=== PATIENT | male | born 1960 | race Caucasian/White ===

== ENCOUNTER 2016-08-22 18:30 | Emergency (ER) | payer MEDICAID, OTHER ==
[2016-08-22 18:44] VITALS: BP 157/108
[2016-08-22] MEDS ORDERED: AZITHROMYCIN 250 MG TABLET PO ONE (19:05)
[2016-08-22] MEDS ORDERED: METHYLPREDNISOLONE SOD SUCC/PF 125 MG/2 ML VIAL IM ONE (19:06)
[2016-08-22] MEDS ORDERED: METHYLPREDNISOLONE SOD SUCC/PF 125 MG/2 ML VIAL ONE (19:09)
[2016-08-22] MEDS ORDERED: AZITHROMYCIN 250 MG TABLET ONE (19:09)
--- NOTE | 2016-08-22 19:10 | ERNOTE ---
Dyspnea - Date Date of Service: 08/22/16 - General Presenting Symptoms: shortness of breath, other - Cough Time Seen by Provider: 08/22/16 18:50 Source: patient, RN notes reviewed Exam Limitations: no limitations - Immun/Allergies/Home Medications Immunizations: IMMUNIZATION HX Immunizations Up to Date Yes History of Influenza Vaccine No Hx Pneumococcal Vaccination No Allergies/Adverse Reactions: Allergies No Known Drug Allergies Allergy (Verified 09/17/16 15:11) Home Medications: HOME MEDICATIONS Lurasidone HCl [Latuda] 60 mg PO DAILY 08/22/16 [Last Taken Unknown] Albuterol Sulfate [Ventolin Hfa] 2 puff IH Q4H PRN #1 inhaler 09/17/16 [Last Taken Unknown] Budesonide [Pulmicort Flexhaler] 2 puff IH BID #1 inhaler 09/17/16 [Last Taken Unknown] Permethrin [Elimite 5% Cream] 1 appl TP ONCE #1 tube 09/17/16 [Last Taken Unknown] - History of Present Illness Narrative: 56 year old male ambulatory to the ED for a cough and shortness of breath that has been gradually worsening over the past 2 months. The patient is a heavy alcohol user and a 2 pack a day smoker. He does not wish to have any diagnostic testing performed, but only to get medications for the condition. 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 Denies: fever/chills, sweating, chest pain/discomfort, ankle/leg swelling, dizziness, lightheadedness Prior Treatment: Denies: recently seen Review of Systems - Review of Systems Constitutional: Present: fatigue, malaise. Absent: fever, chills EYE: Present: no symptoms reported ENT: Present: sore throat. Absent: nose congestion, nasal drainage Respiratory: Present: shortness of breath, cough, wheezing. Absent: orthopnea Cardiology: Absent: chest pain, edema Gastrointestinal/Abdominal: Absent: nausea, vomiting, abdominal pain Genitourinary: Present: no symptoms reported Musculoskeletal: Present: no symptoms reported Skin: Absent: rash, lesions Neurological: Absent: headache, dizziness/light-headedness Endocrine: Present: no symptoms reported Hematologic/Lymphatic: Present: no symptoms reported Psych: Present: no symptoms reported - Patient's Past Medical History Patient History - Medical: Alcohol Abuse, Bipolar Patient History - Cardiac/Respiratory: COPD Patient History - Cancer: No Hx of Cancer Patient History - Surgical Procedures: Other Patient History - Other: None - Social History Living Situations: home Psych History: Hx of Bipolar Disorder Smoking Status: Current every day smoker Do you dip or chew tobacco: Yes Alcohol Use: heavy Drug Use: marijuana - Immunizations Immunizations Up to Date: Yes Hx Pneumococcal Vaccination: No History of Influenza Vaccine: No Physical Exam - Physical Exam General Appearance: Present: wd/wn, alert, no apparent distress Ears, Nose, Throat: Present: nasal congestion, pharyngeal erythema. Absent: sinus pain/drainage, pharyngeal swelling Neck: Present: normal inspection, nontender, supple, full range of motion Respiratory: Present: no respiratory distress, accessory muscle use - mild, decreased breath sounds, expiration (prolonged), wheezing Cardiovascular/Chest: Present: regular rate, rhythm, no murmur, normal peripheral pulses Extremity Exam: Present: normal inspection, no edema Neurological Exam: Present: alert, oriented, normal mood/affect, no motor/ sensory deficits Skin Exam: Present: normal color, warm/dry ED Progress - Vital Signs Patient's Vital Signs:: I have reviewed the patient's vital signs. Vital Signs: Vital Signs 08/22/16 18:39 Temperature 37.2 C Pulse Rate 82 Respiratory 24 H Rate Blood Pressure 157/108 O2 Sat by Pulse 95 Oximetry - Progress/Reassessment Chief Complaint: Dyspnea Progress:: Unchanged Departure Clinical Impression: COPD with acute exacerbation - Departure Disposition: Home Follow Up Needed Condition: Fair Instructions: Chronic Obstructive Pulmonary Disease, [id number] Additional Instructions: Return if symptoms worsen Establish with a primary care provider for management of your chronic breathing issues Stop smoking
--- OUTSIDE RECORDS SUMMARY | 2016-08-22 19:17 | XMS REPORT | Continuity of Care Document ---
:1960 Author Organization [facility] ([facility]) Address [address] [place] [address] Phone [phone] Care Team Providers Name Role Phone Provider, No-Primary Care Primary Care Provider Unavailable Source Comments This disclosure is being made pursuant to the Care Everywhere program, applicable federal and state laws, and may not contain all informaitonavailable regarding this patient.[facility] ([facility]) Active Allergies and Adverse Reactions Allergen Noted Date Severity Reactions Comments Bee Stings Anaphylactic Shock Current Medications Not on file Active Problems Problem Noted Date Closed fracture of shaft of fibula with tibia 02/24/2007 Pain in limb 02/06/2007 Social History Tobacco Use Types Packs/Day Years Used Date Never Assessed Last Filed Vital Signs Vital Sign Reading Time Taken Blood Pressure 130/76 02/15/2007 11:48 AM CDT Pulse 65 02/15/2007 11:48 AM CDT Temperature 34.8 C (94.64 F) 02/15/2007 11:48 AM CDT Respiratory Rate 20 02/06/2007 11:44 AM CDT Height 1.775 m (5' 9.88") 02/15/2007 11:48 AM CDT Weight 74.898 kg (165 lb 1.9 oz) 02/15/2007 11:48 AM CDT Body Mass Index 23.77 02/15/2007 11:48 AM CDT Oxygen Saturation - - Plan of Care Health Maintenance Due Date Last Done Comments HCV Screening 1960 Hepatitis B Vaccine (1 of 3 - Primary Series) 1960 Tdap Vaccine 1969 Lipid Disorder Screening 1976 MMR Vaccine 1976 Td Vaccine 1976 Colonoscopy 08/31/2008 Prostate Cancer Screening 2008 Influenza Vaccine: Seasonal (#1) 01/19/2016 Results from Last 3 Months Not on file
== END 2016-08-22 19:34 | disposition home or self-care (01) ==
LOC: ER 18:30
DX: J44.1 Chronic obstructive pulmonary disease with (acute) exacerbation (principal); Z72.0 Tobacco use; F31.70 Bipolar disorder, currently in remission, most recent episode unspecified

== ENCOUNTER 2016-09-17 14:58 | Emergency (ER) | payer OTHER ==
[2016-09-17] MEDS ORDERED: ALBUTEROL SULFATE/IPRATROPIUM 3 ML NEBU IH ONE ×2 (15:27→15:30)
--- OUTSIDE RECORDS SUMMARY | 2016-09-17 15:33 | XMS REPORT | Continuity of Care Document ---
:1960 Author Organization [facility] ([facility]) Address [address] [place] [address] Phone [phone] Care Team Providers Name Role Phone Provider, No-Primary Care Primary Care Provider Unavailable Source Comments This disclosure is being made pursuant to the Care Everywhere program, applicable federal and state laws, and may not contain all informaitonavailable regarding this patient.[facility] ([facility]) Active Allergies and Adverse Reactions Allergen [...]
--- NOTE | 2016-09-17 15:46 | ERNOTE ---
Integumentary HPI - Narrative Date of Service: 09/17/16 - General Presenting Symptoms: rash, other - SOB Time Seen by Provider: 09/17/16 15:15 Source: patient Exam Limitations: no limitations - Immun/Allergies/Home Medications Immunizations: IMMUNIZATION HX Immunizations Up to Date No History of Influenza Vaccine No Hx Pneumococcal Vaccination No Allergies/Adverse Reactions: Allergies Allergy/AdvReac Type Severity Reaction Status Date / Time No Known Drug Allergies Allergy Verified 09/17/16 15:11 Home Medications: HOME MEDICATIONS Lurasidone HCl [Latuda] 60 mg PO DAILY 08/22/16 [Last Taken Unknown] Albuterol Sulfate [Ventolin Hfa] 2 puff IH Q4H PRN #1 inhaler 09/17/16 [Last Taken Unknown] Budesonide [Pulmicort Flexhaler] 2 puff IH BID #1 inhaler 09/17/16 [Last Taken Unknown] Permethrin [Elimite 5% Cream] 1 appl TP ONCE #1 tube 09/17/16 [Last Taken Unknown] - History of Present Illness Narrative: Pt. comes in with rash that he has had for months, pt is unsure of exact timing of illness. Pt. also was recently diagnosed with COPD and he was treated for acute on chronic bronchitis with steroids and antibiotics three weeks ago with improvement of symptoms, but not resolution. Pt. then states that he steadily worsened again since. Pt. denies any fever or chest pain, but does have SOB with activity. Review of Systems - Review of Systems Constitutional: Present: fatigue, malaise. Absent: recent illness, fever, chills EYE: Present: no symptoms reported ENT: Present: nose congestion, nasal drainage. Absent: sore throat Respiratory: Present: shortness of breath, cough, wheezing. Absent: stridor Cardiology: Present: no symptoms reported. Absent: chest pain, palpitations, edema Gastrointestinal/Abdominal: Present: no symptoms reported. Absent: nausea, vomiting, diarrhea Genitourinary: Present: no symptoms reported Musculoskeletal: Present: no symptoms reported. Absent: back pain, joint pain Skin: Present: rash - B arms and back at waist band Neurological: Present: no symptoms reported. Absent: headache, dizziness/light- headedness, numbness, tingling All Other Systems: All systems neg except as marked - Patient's Past Medical History Patient History - Medical: Bipolar Patient History - Cardiac/Respiratory: COPD Patient History - Cancer: No Hx of Cancer Patient History - Surgical Procedures: Other Patient History - Other: None - Social History Living Situations: alone Abuse History: No History of abuse Psych History: Hx of Bipolar Disorder Smoking Status: Current every day smoker Alcohol Use: heavy Drug Use: marijuana - Immunizations Immunizations Up to Date: No Hx Pneumococcal Vaccination: No History of Influenza Vaccine: No Physical Exam - Physical Exam General Appearance: Present: wd/wn, alert, no apparent distress Eye Exam: Normal inspection: bilateral, PERRL: bilateral, EOMI: bilateral Ears, Nose, Throat: Present: normal pharynx, other - clear rhinorrhea. Absent: sinus pain/drainage, pharyngeal erythema Neck: Present: normal inspection, nontender. Absent: lymphadenopathy (R), lymphadenopathy (L) Respiratory: Present: no accessory muscle use, chest nontender, rhonchi - throughout, wheezing - throughout Cardiovascular/Chest: Present: regular rate, rhythm, no murmur, normal peripheral pulses Gastrointestinal/Abdominal: Present: normal bowel sounds, nontender, nondistended, soft, no organomegaly Back Exam: Present: normal inspection, normal range of motion, no CVA tenderness , no vertebral tenderness Extremity Exam: Present: non-tender, normal range of motion, no edema Neurological Exam: Present: alert, oriented, normal mood/affect, no motor/ sensory deficits Skin Exam: Present: warm/dry, skin rash - B arms and lower back at waistband scabies like. Absent: intertrigo ED Progress - Date and Time Seen: Date and Time: 09/17/16 18:41 Discussed quitting smoking and cutting down on ETOH use. Pt. also needs PCP so will give him a list to choose from. - Results and Orders Patient's Lab Results:: I have reviewed the patient's lab results. - Vital Signs Patient's Vital Signs:: I have reviewed the patient's vital signs. Vital Signs: Vital Signs 09/17/16 15:07 Temperature 36.7 C Pulse Rate 104 H Respiratory 16 Rate Blood Pressure 162/100 O2 Sat by Pulse 98 Oximetry - X-Ray X-Ray #1 X-Ray: chest Interpretation: Reviewed by me X-ray Comments: chronic hyper inflation no acute process - Progress/Reassessment Chief Complaint: Rash Progress:: Improved Departure Clinical Impression: COPD with acute exacerbation, ETOH abuse, Scabies - Departure Disposition: Home self-care Condition: Good Instructions: Scabies, Adult, Chronic Obstructive Pulmonary Disease Exacerbation, [id number] Additional Instructions: Please use lubriderm lotion after you rinse of elimite. Also use pulmicort as directed daily and albuterol every four hours as needed. Please follow up with primary provider of your choice in 2-3 days. Prescriptions: Albuterol Sulfate [Ventolin Hfa] 2 puff IH Q4H PRN #1 inhaler PRN Reason: Shortness Of Breath Budesonide [Pulmicort Flexhaler] 2 puff IH BID #1 inhaler Permethrin [Elimite 5% Cream] 1 appl TP ONCE #1 tube
[2016-09-17 15:53] LABS: Hematocrit 47.1 % (42.0-52.0); Hemoglobin 17.3 gm/dL (13.5-18.0); Mean Cell Volume 89.5 fl (78-100); Mean Corpuscular Hemoglobin 32.9 pg (27-31); Mean Corpuscular Hgb Conc 36.7 g/dl (32-36); Mean Platelet Volume 8.9 fl (6.0-9.5); Neutrophil # 2.8 K/mm3 (1.3-6.0); Neutrophil % 58.6 % (42-75.0); Platelet Count 188 K/mm3 (150-450); Red Blood Count 5.26 M/mm3 (4.7-6.0); Red Cell Distribution Width 11.9 % (11.5-14.0); White Blood Count 4.8 K/mm3 (4.0-10.5)
[2016-09-17 16:07] LABS: ALT 154 U/L (19-67); AST 250 U/L (0-48); Albumin * 4.3 gm/dl (3.4-5.0); Alkaline Phosphatase * 69 U/L (50-170); BNP * 80 pg/mL (5-175); BUN/Creatinine Ratio 7.2 (9.0-21.6); Bilirubin, Total 1.2 mg/dL (0.0-1.1); Blood Urea Nitrogen 5 mg/dL (6-23); CRP 0.8 mg/dL (0.0-0.9); Ca. Corrected For Albumin 8.2 mg/dL (8.4-10.2); Calcium * 8.8 mg/dL (7.9-10.9); Chloride 87 mmol/L (97-106); Glucose * 71 mg/dL (70-110); Potassium 4.4 mmol/L (3.4-4.6); Sodium 126 mmol/L (132-142); Total Protein 8.2 gm/dL (6.2-8.2)
[2016-09-17 16:13] LABS: Anion Gap 19.8 mmol/L (6.8-13.8); Carbon Dioxide 23.6 mmol/L (24-32.6); Troponin I Less than 0.017 ng/ml (0.00-0.10)
[2016-09-17] MEDS ORDERED: NORMAL SALINE 1,000 ML IV ONE (16:13)
[2016-09-17] MEDS ORDERED: MULTIVIT INFUSN,ADULT 4,VIT K 10 ML, THIAMINE HCL 100 MG in NORMAL SALINE 1,000 ML IV SCH (16:30)
[2016-09-17 21:31] VITALS: BP 148/78
== END 2016-09-17 21:28 | disposition home or self-care (01) ==
LOC: ER 14:58
DX: J44.1 Chronic obstructive pulmonary disease with (acute) exacerbation (principal); B86 Scabies; F10.10 Alcohol abuse, uncomplicated; F17.210 Nicotine dependence, cigarettes, uncomplicated; F31.9 Bipolar disorder, unspecified

== ENCOUNTER 2016-12-04 16:17 | Emergency (ER) | payer OTHER ==
[2016-12-04 16:26] VITALS: BP 132/83
--- NOTE | 2016-12-04 16:51 | ERNOTE ---
Back Pain ER HPI Date of Service: 12/04/16 Presenting Symptoms: injury/pain to back Time Seen by Provider: 12/04/16 16:42 Source: patient Exam Limitations: no limitations Immunizations: IMMUNIZATION HX Immunizations Up to Date Yes History of Influenza Vaccine No Hx Pneumococcal Vaccination No Allergies/Adverse Reactions: Allergies No Known Drug Allergies Allergy (Verified 12/04/16 16:26) Home Medications: HOME MEDICATIONS Lurasidone HCl [Latuda] 60 mg PO DAILY 08/22/16 [Last Taken Unknown] Cyclobenzaprine HCl [Flexeril] 10 mg PO TID PRN #30 tab 12/04/16 [Last Taken Unknown] Narrative: no injury, patient has been sleeping in recliner and back has been in spasm Timing: Reports: constant, getting worse Quality/Severity: Reports: moderate Location of pain: Reports: mid back Activities at Onset: Reports: activity Recent Injury?: Reports: no Possible Precipitating Factor: Reports: none Modifying Factors - (Improves): Reports: nothing Modifying Factors - (Worsens): Reports: movement to right, movement to left Associated Symptoms: Reports: none Review of Systems - Review of Systems Constitutional: Present: no symptoms reported EYE: Present: no symptoms reported ENT: Present: no symptoms reported Respiratory: Present: no symptoms reported Cardiology: Present: no symptoms reported Gastrointestinal/Abdominal: Present: no symptoms reported Genitourinary: Present: no symptoms reported Musculoskeletal: Present: muscle pain, muscle stiffness Skin: Present: no symptoms reported Neurological: Present: no symptoms reported Endocrine: Present: no symptoms reported Hematologic/Lymphatic: Present: no symptoms reported Psych: Present: no symptoms reported - Patient's Past Medical History Patient History - Medical: Bipolar Patient History - Cardiac/Respiratory: No pertinent hx Patient History - Cancer: No Hx of Cancer Patient History - Surgical Procedures: No surgical history Patient History - Other: None - Family History Family History:: no untoward family reactions to anesthesia, no familial bleeding tendencies, no family history of clotting disorders, no family history of premature - Social History Living Situations: alone Abuse History: No History of abuse Psych History: Hx of Bipolar Disorder Smoking Status: Current every day smoker Have you smoked in the past 12 months: Yes Do you dip or chew tobacco: Yes Initiate information on Smoking Cessation: No Alcohol Use: heavy Drug Use: marijuana - Immunizations Immunizations Up to Date: Yes Hx Pneumococcal Vaccination: No History of Influenza Vaccine: No Physical Exam - Physical Exam General Appearance: Present: alert, moderate distress Eye Exam: Normal inspection: bilateral, PERRL: bilateral, EOMI: bilateral Ears, Nose, Throat: Present: normal ENT inspection Neck: Present: normal inspection, nontender Respiratory: Present: no respiratory distress, normal breath sounds, chest nontender, lungs clear Cardiovascular/Chest: Present: regular rate, rhythm, no murmur, normal peripheral pulses Gastrointestinal/Abdominal: Present: normal bowel sounds, nontender, nondistended, soft, no organomegaly Back Exam: Present: vertebral tenderness, decreased range of motion, muscle spasm Extremity Exam: Present: normal inspection, normal range of motion, no edema Neurological Exam: Present: alert, oriented, normal mood/affect, no motor/ sensory deficits DTR: N=norm/NB=norm/brisk/A=abs/DD=dull/dimin/HC=hyperactive: Bicep (R): Normal , Bicep (L): Normal, Tricep (R): Normal, Tricep (L): Normal, Knee (R): Normal, Knee (L): Normal, Ankle (R): Normal, Ankle (L): Normal Skin Exam: Present: normal color, warm/dry ED Progress - Vital Signs Patient's Vital Signs:: I have reviewed the patient's vital signs. Vital Signs: Vital Signs 12/04/16 16:20 Temperature 36.8 C Pulse Rate 116 H Respiratory 18 Rate Blood Pressure 132/83 O2 Sat by Pulse 96 Oximetry - Progress/Reassessment Chief Complaint: Back Pain Progress:: Unchanged - Transfer of Care Expected Disposition: Discharge Departure Clinical Impression: Muscle spasm - Departure Disposition: Home self-care Condition: Stable Instructions: Mid-Back Strain With Rehab[facility] Prescriptions: Cyclobenzaprine HCl [Flexeril] 10 mg PO TID PRN #30 tab PRN Reason: MUSCLE SPASMS
--- OUTSIDE RECORDS SUMMARY | 2016-12-04 16:59 | XMS REPORT | Continuity of Care Document ---
:1960 Author Organization [facility] ([facility]) Address [address] [place] [address] Phone [phone] Care Team Providers Name Role Phone Provider, No-Primary Care Primary Care Provider Unavailable Source Comments This disclosure is being made pursuant to the Care Everywhere program, applicable federal and state laws, and may not contain all informaitonavailable regarding this patient.[facility] ([facility]) Active Allergies and Adverse Reactions Allergen Noted [...]
== END 2016-12-04 16:55 | disposition home or self-care (01) ==
LOC: ER 16:17
DX: M62.830 Muscle spasm of back (principal); Z72.0 Tobacco use; F31.70 Bipolar disorder, currently in remission, most recent episode unspecified

== ENCOUNTER 2020-04-21 05:42 | Observation (INO) ==
[2020-04-21] MEDS ORDERED: IBUPROFEN 600 MG TABLET PO ONE (06:12)
[2020-04-21 06:29] LABS: Hematocrit 40.5 % (42.0-52.0); Hemoglobin 14.6 gm/dL (13.5-18.0); Mean Cell Volume 90.8 fl (78-100); Mean Corpuscular Hemoglobin 32.7 pg (27-31); Mean Platelet Volume 8.9 fl (8-11.3); Neutrophil # 9.3 K/mm3 (1.3-6.0); Neutrophil % 86.1 % (42-75.0); Platelet Count 180 K/mm3 (150-450); Red Blood Count 4.46 M/mm3 (4.7-6.0); Red Cell Distribution Width 11.4 % (11.5-14.0); White Blood Count 10.8 K/mm3 (4.0-10.5)
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
[2020-04-21 06:46] LABS: Albumin * 3.8 gm/dl (3.4-5.0); BUN/Creatinine Ratio 12.2 (9.0-21.6); Bilirubin, Total 1.2 mg/dL (0.0-1.1); Ca. Corrected For Albumin 8.4 mg/dL (8.4-10.2); Calcium * 8.6 mg/dL (7.9-10.9); Carbon Dioxide 27.2 mmol/L (24-32.6); Total Protein 7.4 gm/dL (6.2-8.2)
[2020-04-21 06:54] LABS: Potassium 3.8 mmol/L (3.4-4.6)
[2020-04-21 06:55] LABS: Anion Gap 13.6 mmol/L (6.8-13.8)
[2020-04-21] MEDS ORDERED: NORMAL SALINE 1,000 ML IV ONE ×3 (07:09→20:35)
[2020-04-21] MEDS ORDERED: ACETAMINOPHEN 325 MG TABLET PO PRN (09:15)
[2020-04-21 09:44] LABS: Anion Gap 11.3 mmol/L (6.8-13.8); BUN/Creatinine Ratio 11.1 (9.0-21.6); Calcium * 8.6 mg/dL (7.9-10.9); Carbon Dioxide 28.4 mmol/L (24-32.6); Estimated Creat Clear 85.9; Potassium 3.7 mmol/L (3.4-4.6)
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
[2020-04-21 13:49] LABS: Anion Gap 12.3 mmol/L (6.8-13.8); BUN/Creatinine Ratio 16.7 (9.0-21.6); Calcium * 8.8 mg/dL (7.9-10.9); Carbon Dioxide 26.2 mmol/L (24-32.6); Estimated Creat Clear 117.1; Potassium 3.5 mmol/L (3.4-4.6)
[2020-04-21] MEDS: NICOTINE 21 MG PATC TD SCH ×2 (14:51→22:19)
[2020-04-21 16:27] LABS: Urine Bilirubin Negative (NEGATIVE); Urine Ketone 5 mg/dL (NEGATIVE); Urine Nitrite Negative (NEGATIVE); Urine Protein Negative (NEGATIVE); Urine Specific Gravity <=1.005 SP.GR. (1.005-1.030); Urine Urobilinogen Normal (NORMAL); Urine pH 6.5 pH (5.0-7.0)
[2020-04-21 16:28] LABS: Urine Appearance Clear (CLEAR); Urine Bacteria TRACE; Urine Blood 5 /ul (NEGATIVE); Urine Color Yellow; Urine WBC None Seen /hpf (0-5)
[2020-04-21 17:47] LABS: Anion Gap 9.7 mmol/L (6.8-13.8); Calcium * 8.1 mg/dL (7.9-10.9); Carbon Dioxide 28.8 mmol/L (24-32.6); Estimated Creat Clear 85.9; Potassium 3.5 mmol/L (3.4-4.6)
[2020-04-21] MEDS: PANTOPRAZOLE SODIUM 20 MG TABLET.DR PO SCH ×2 (19:56→20:25)
[2020-04-21 21:28] LABS: Anion Gap 9.2 mmol/L (6.8-13.8); BUN/Creatinine Ratio 14.1 (9.0-21.6); Calcium * 8.7 mg/dL (7.9-10.9); Carbon Dioxide 27.1 mmol/L (24-32.6); Estimated Creat Clear 108.9; Potassium 3.3 mmol/L (3.4-4.6)
[2020-04-21] MEDS ORDERED: MELATONIN 3,000 MCG TABLET PO ONE (22:06)
[2020-04-22] MEDS ORDERED: ALBUTEROL SULFATE/IPRATROPIUM 3 ML NEBU IH PRN (02:21)
[2020-04-22] MEDS ORDERED: amLODIPine BESYLATE 5 MG TABLET PO ONE (02:23)
[2020-04-22] MEDS ORDERED: ALBUTEROL SULFATE/IPRATROPIUM 3 ML NEBU IH ONE (02:24)
[2020-04-22 06:30] LABS: Hematocrit 37.8 % (42.0-52.0); Hemoglobin 13.1 gm/dL (13.5-18.0); Mean Cell Volume 93.6 fl (78-100); Mean Corpuscular Hemoglobin 32.4 pg (27-31); Mean Corpuscular Hgb Conc 34.7 g/dl (32-36); Mean Platelet Volume 9.3 fl (8-11.3); Neutrophil # 7.7 K/mm3 (1.3-6.0); Platelet Count 141 K/mm3 (150-450); Red Blood Count 4.04 M/mm3 (4.7-6.0); Red Cell Distribution Width 11.8 % (11.5-14.0); White Blood Count 9.7 K/mm3 (4.0-10.5)
[2020-04-22 06:34] LABS: Albumin * 3.1 gm/dl (3.4-5.0); Anion Gap 10.7 mmol/L (6.8-13.8); BUN/Creatinine Ratio 10.3 (9.0-21.6); Bilirubin, Total 1.1 mg/dL (0.0-1.1); Ca. Corrected For Albumin 8.3 mg/dL (8.4-10.2); Calcium * 7.9 mg/dL (7.9-10.9); Carbon Dioxide 27.8 mmol/L (24-32.6); Potassium 3.5 mmol/L (3.4-4.6); Total Protein 6.4 gm/dL (6.2-8.2)
[2020-04-22] MEDS: PANTOPRAZOLE SODIUM 20 MG TABLET.DR PO SCH (07:29)
[2020-04-22] MEDS ORDERED: LABETALOL HCL 5 MG/ML VIAL IV ONE (07:56)
--- NOTE | 2020-04-22 08:58 | DS ---
(1) ETOH abuse Problem: Chronic (2) Degenerative disc disease Problem: Chronic (3) Hyponatremia Problem: Acute (4) Chronic low back pain Problem: Chronic Qualifiers: Back pain laterality: midline Sciatica presence: without sciatica Qualified Code(s): M54.5 - Low back pain; G89.29 - Other chronic pain (5) COPD (chronic obstructive pulmonary disease) Problem: Chronic Qualifiers: COPD type: unspecified COPD Qualified Code(s): J44.9 - Chronic obstructive pulmonary disease, unspecified (6) Nicotine dependence Problem: Chronic Qualifiers: Nicotine product type: cigarettes (7) Alcoholism Problem: Chronic (8) Alcohol withdrawal Problem: Acute Qualifiers: Complication of substance-induced condition: uncomplicated Qualified Code(s): F10.230 - Alcohol dependence with withdrawal, uncomplicated (9) Abdominal tenderness in left flank Problem: Acute (10) Elevated transaminase level Problem: Acute Date of Discharge:: 04/22/20 Hospital Course: 59-year-old male admitted for hyponatremia and exacerbation of chronic low back pain was evaluated at bedside this morning was found to be afebrile and in no acute distress. Since admission patient has been treated with IV fluids with normal saline to treat his hyponatremia and has tolerated the treatment without any major issues. His sodium has improved significantly, from 118 to 125 which is around the patient's baseline. Last night his blood pressure was elevated, I suspect this is due to the IV fluids and his known history of hypertension, so he was treated with antihypertensives and his blood pressure subsequently improved. Patient reports feeling better and ready to go home. Therefore we will discharge him home with instructions to follow-up with me his PCP at internal medicine clinic here at [facility] with a CMP to reevaluate sodium levels. He will also be instructed to restrict free water intake to a liter a day to avoid worsening of his hyponatremia. We will provide him with a prescription for additional days of pain medications to control his back pain. Patient also has a long history of alcoholism which most likely contributes to his electrolyte imbalance and is causing liver injury, therefore he was counseled once again to abstain from alcohol consumption. He said he will make an effort. Caseworkers had a discussion with the patient and it was determined that he is in need of a walker and home health services which will be provided by [facility]. This will include a home health aide to assist with activities of daily living such as bathing and other ADLs, as well as physical therapy to address issues with ambulation and balance secondary to his chronic back pain and other problems with his back. The need for home health care skilled services is directly related to the time spent [id number] with the patient. Procedures Performed: none Results and Findings: Lab Pending Results 04/21/20 06:21: WBC 10.8 H, RBC 4.46 L, Hgb 14.6, Hct 40.5 L, MCV 90.8, MCH 32.7 H, MCHC 36.0, RDW 11.4 L, Plt Count 180, MPV 8.9, Immature Gran % (Auto) 0.80 H, Immature Gran # (Auto) 0.09 H, Neutrophils % 86.1 H, Lymphocytes % 8.1 L, Monocytes % 4.6, Eosinophils % 0.0, Basophils % 0.4, Nucleated RBC % 0.0, Neutrophils # 9.3 H, Lymphocytes # 0.87 L, Monocytes # 0.5, Eosinophils # 0.0, Absolute Basophils 0.0 04/21/20 06:21: Sodium 118 L*, Plasma Sodium 118 L*, Potassium 3.8, Chloride 81 L, Carbon Dioxide 27.2, Anion Gap 13.6, BUN 9, Creatinine 0.74, Est GFR (Non-Af Amer) 114 D, BUN/Creatinine Ratio 12.2, Random Glucose 108, Calcium 8.6, Calcium Adj for Albumin 8.4, Total Bilirubin 1.2 H, AST 98 H, ALT 68 H, Alkaline Phosphatase 70, B-Natriuretic Peptide 364 H, Total Protein 7.4, Albumin 3.8 04/21/20 07:13: SARS-CoV-2 (PCR) Not detected 04/21/20 09:33: Sodium 117 L*, Plasma Sodium 117 L*, Potassium 3.7, Chloride 81 L, Carbon Dioxide 28.4, Anion Gap 11.3, BUN 10, Creatinine 0.90, Est GFR (Non-Af Amer) 91 D, BUN/Creatinine Ratio 11.1, Random Glucose 100, Calcium 8.6 04/21/20 13:25: Sodium 119 L, Plasma Sodium 119 L*, Potassium 3.5, Chloride 84 L, Carbon Dioxide 26.2, Anion Gap 12.3, BUN 11, Creatinine 0.66, Est GFR (Non-Af Amer) 130 D, BUN/Creatinine Ratio 16.7, Random Glucose 102, Calcium 8.8 04/21/20 17:17: Sodium 121 L, Plasma Sodium 121 L, Potassium 3.5, Chloride 86 L, Carbon Dioxide 28.8, Anion Gap 9.7, BUN 9, Creatinine 0.90, Est GFR (Non-Af Amer) 91 D, BUN/Creatinine Ratio 10.0, Random Glucose 98, Calcium 8.1 04/21/20 21:13: Sodium 122 L, Plasma Sodium 122 L, Potassium 3.3 L, Chloride 89 L, Carbon Dioxide 27.1, Anion Gap 9.2, BUN 10, Creatinine 0.71, Est GFR (Non-Af Amer) 120 D, BUN/Creatinine Ratio 14.1, Random Glucose 95, Calcium 8.7 04/21/20 : Urine Color Yellow, Urine Appearance Clear, Urine pH 6.5, Ur Specific [place] <=1.005, Urine Protein Negative, Urine Glucose (UA) Negative, Urine Ketones 5, Urine Blood 5 H, Urine Nitrate Negative, Urine Bilirubin Negative, Urine Urobilinogen Normal, Ur Leukocyte Esterase Negative, Urine RBC 5-10 H, U rine WBC None seen, Ur Epithelial Cells 0-5, Urine Bacteria Trace 04/22/20 06:19: Sodium 125 L, Plasma Sodium 125 L, Potassium 3.5, Chloride 90 L, Carbon Dioxide 27.8, Anion Gap 10.7, BUN 8, Creatinine 0.78, Est GFR (Non-Af Amer) 108, BUN/Creatinine Ratio 10.3, Random Glucose 94, Calcium 7.9, Calcium Adj for Albumin 8.3 L, Total Bilirubin 1.1, AST 85 H, ALT 59, Alkaline Ph osphatase 61, Total Protein 6.4, Albumin 3.1 L 04/22/20 06:19: WBC 9.7, RBC 4.04 L, Hgb 13.1 L, Hct 37.8 L, MCV 93.6, MCH 32.4 H, MCHC 34.7, RDW 11.8, Plt Count 141 L, MPV 9.3, Immature Gran % (Auto) 0.80 H, Immature Gran # (Auto) 0.08 H, Neutrophils % 79.0 H, Lymphocytes % 11.1 L, Monocytes % 8.0, Eosinophils % 0.6, Basophils % 0.5, Nucleated RBC % 0.0, Neutrophils # 7.7 H, Lymphocytes # 1.08 L, Monocytes # 0.8, Eosinophils # 0.1, Absolute Basophils 0.1 Discharge Location: Home Disposition: Home Health Service Home Health Agency: [facility] Home Health Condition: Stable Face to Face Encounter completed per CMS Guidelines: Yes Discharge Activity: Activity as tolerated Discharge Diet: General/regular food Referrals: Nayla Trejo MD [Primary Care Provider] - Additional Patient Instructions (free text): Follow up with Dr. Trejo TuesdayApril 29 at 3:45 p.m LAB -- CMP in 3 days Prescriptions (Any new or edited meds): amLODIPine BESYLATE [Norvasc] 5 mg PO DAILY #30 tab Transmission Status: P[place] to [place] traMADol HCL [Tramadol HCl] 50 mg PO Q6H #30 tablet Transmission Status: Received by [place] Complete Home Medications List: Complete Home Medication List: amLODIPine BESYLATE [Norvasc] 5 mg PO DAILY #30 tab 04/22/20 traMADol HCL [Tramadol HCl] 50 mg PO Q6H #30 tablet 04/22/20 Amb Orders for Discharge: Comprehensive Metabolic Panel Time Frame: 3 Days, Facility: [facility], Location: Laboratory Forms: Patient Portal Registration
[2020-04-22] MEDS: NICOTINE 21 MG PATC TD SCH (11:20)
[2020-04-22 12:39] VITALS: BP 158/90
== END 2020-04-22 12:50 | disposition home health service (06) ==
LOC: ER 05:42 → MS 07:33 → INTOOBSV 07:33 → MS 09:00
PROVIDERS: ADMIT Family Medicine; ATTEND Family Medicine

== ENCOUNTER 2020-05-15 13:17 | Observation (INO) ==
[2020-05-15 13:44] LABS: Hematocrit 42.8 % (42.0-52.0); Hemoglobin 14.5 gm/dL (13.5-18.0); Mean Cell Volume 95.1 fl (78-100); Mean Corpuscular Hemoglobin 32.2 pg (27-31); Mean Corpuscular Hgb Conc 33.9 g/dl (32-36); Mean Platelet Volume 9.6 fl (8-11.3); Neutrophil # 3.3 K/mm3 (1.3-6.0); Neutrophil % 54.7 % (42-75.0); Platelet Count 173 K/mm3 (150-450); Red Cell Distribution Width 11.8 % (11.5-14.0)
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
[2020-05-15 13:58] LABS: ALT 161 U/L (19-67); AST 135 U/L (0-48); Albumin * 4.1 gm/dl (3.4-5.0); Alkaline Phosphatase * 107 U/L (50-170); Anion Gap 11.5 mmol/L (6.8-13.8); BUN/Creatinine Ratio 11.5 (9.0-21.6); Blood Urea Nitrogen 10 mg/dL (6-23); Ca. Corrected For Albumin 9.2 mg/dL (8.4-10.2); Calcium * 9.6 mg/dL (7.9-10.9); Carbon Dioxide 28.6 mmol/L (24-32.6); Chloride 90 mmol/L (97-106); Glucose * 150 mg/dL (70-110); Potassium 4.1 mmol/L (3.4-4.6); Total Protein 7.9 gm/dL (6.2-8.2); Troponin I Less than 0.017 ng/mL (0.00-0.10)
[2020-05-15 13:59] LABS: Sodium 126 mmol/L (132-142)
[2020-05-15 14:16] LABS: Prothrombin Time (Patient) 10.3 Seconds (9.1-10.7)
[2020-05-15 14:18] LABS: INR 1.04 INR (0.92-1.08)
[2020-05-15 14:36] LABS: Urine Bilirubin 1 mg/dl (NEGATIVE); Urine Blood Negative /ul (NEGATIVE); Urine Ketone Negative (NEGATIVE); Urine Nitrite Negative (NEGATIVE); Urine Protein Negative (NEGATIVE); Urine Urobilinogen Normal (NORMAL); Urine pH 6.5 pH (5.0-7.0)
[2020-05-15 14:46] LABS: Cocaine Ur Negative (NEGATIVE); Urine Barbiturate Negative (NEGATIVE); Urine Benzodiazepines Negative (NEGATIVE); Urine Opiates Negative (NEGATIVE); Urine PCP Negative (NEGATIVE); Urine THC Negative (NEGATIVE)
[2020-05-15 14:51] LABS: Urine Appearance Clear (CLEAR); Urine Bacteria TRACE; Urine Color Yellow; Urine RBC TRACE /hpf (0-5); Urine WBC 0-5 /hpf (0-5)
[2020-05-15 14:52] LABS: Urine Mucus Few - 1+
[2020-05-15] MEDS ORDERED: NORMAL SALINE 1,000 ML IV PRN (15:44)
[2020-05-15] MEDS ORDERED: ACETAMINOPHEN 1,000 MG/100 ML BTL IV PRN (17:57)
[2020-05-15] MEDS: amLODIPine BESYLATE 5 MG TABLET PO SCH (18:26)
[2020-05-15] MEDS: NORMAL SALINE 1,000 ML IV PRN (18:28)
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
[2020-05-15] MEDS: KETOROLAC TROMETHAMINE 10 MG TABLET PO PRN (21:00)
[2020-05-16] MEDS: KETOROLAC TROMETHAMINE 10 MG TABLET PO PRN (02:43)
[2020-05-16] MEDS: NORMAL SALINE 1,000 ML IV PRN (02:44)
[2020-05-16 06:42] LABS: Albumin * 3.5 gm/dl (3.4-5.0); Anion Gap 10.9 mmol/L (6.8-13.8); BUN/Creatinine Ratio 8.3 (9.0-21.6); Bilirubin, Total 0.9 mg/dL (0.0-1.1); Ca. Corrected For Albumin 8.7 mg/dL (8.4-10.2); Calcium * 8.6 mg/dL (7.9-10.9); Potassium 3.9 mmol/L (3.4-4.6); Total Protein 7.1 gm/dL (6.2-8.2)
[2020-05-16] MEDS ORDERED: amLODIPine BESYLATE 5 MG TABLET PO ONE (07:30)
[2020-05-16] MEDS: amLODIPine BESYLATE 5 MG TABLET PO SCH ×2 (08:51→10:41)
--- NOTE | 2020-05-16 09:08 | DS ---
Date of Discharge:: 05/16/20 Hospital Course: 59-year-old male with past medical history of chronic hyponatremia, chronic alcoholism, chronic liver disease, hypertension, former smoker, former drug user, chronic back pain was evaluated at bedside and was found to be afebrile and in no acute distress. The patient was admitted yesterday for recurrent electrolyte imbalance specifically hyponatremia however this is not new for him and he is actually around his baseline. The patient also went to the ER for persistent back pain that resulted from a fall that occurred several weeks ago superimposed on chronic back pain. Since his last admission the patient was referred to Ortho and for follow-up appointment with myself his PCP however he was noncompliant and did not keep his appointments. 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 We have treated him with oral antihypertensives and pain medications. Since arriving the patient has been treated with IV fluids which has resulted in improvement of his elect electrolyte imbalance, he is actually currently at his baseline sodium levels. Upon questioning the patient admits to continued drinking he drinks a sixpack daily but says he is trying to cut back. He was once again counseled on the importance of not abusing alcohol and taking his medication as prescribed and keeping his appointment in order to avoid recurrent unnecessary hospitalizations. We will discharge patient home with appointments with myself his PCP for follow-up and once again prescribed oral pain medication as well as blood pressure medications. Procedures Performed: none Results and Findings: Lab Pending Results 05/15/20 13:36: WBC 6.0, RBC 4.50 L, Hgb 14.5, Hct 42.8, MCV 95.1, MCH 32.2 H, MCHC 33.9, RDW 11.8, Plt Count 173, MPV 9.6, Immature Gran % (Auto) 1.00 H, Immature Gran # (Auto) 0.06 H, Neutrophils % 54.7, Lymphocytes % 21.9, Monocytes % 18.6 H, Eosinophils % 2.8, Basophils % 1.0, Nucleated RBC % 0.0, Neutrophils # 3.3, Lymphocytes # 1.32 L, Monocytes # 1.1 H, Eosinophils # 0.2, Absolute Basophils 0.1 05/15/20 13:36: Sodium 126 L, Plasma Sodium 127 L, Potassium 4.1, Chloride 90 L, Carbon Dioxide 28.6, Anion Gap 11.5, BUN 10, Creatinine 0.87, Est GFR (Non-Af Amer) 95, BUN/Creatinine Ratio 11.5, Random Glucose 150 H, Calcium 9.6, Calcium Adj for Albumin 9.2, Total Bilirubin 1.0, AST 135 H, ALT 161 H, Alkaline Phosphatase 107, Troponin I Less than 0.017, Total Protein 7.9, Albumin 4.1, Ethyl Alcohol Less than 3.0 05/15/20 13:36: Magnesium 1.8 05/15/20 13:36: PT 10.3, INR (Anticoag Therapy) 1.04 05/15/20 14:09: Urine Color Yellow, Urine Appearance Clear, Urine pH 6.5, Ur Specific [place] 1.020, Urine Protein Negative, Urine Glucose (UA) Negative, Urine Ketones Negative, Urine Blood Negative, Urine Nitrate Negative, Urine Bilirubin 1 H, Urine Ictotest Negative, Urine Urobilinogen Normal, Ur Leukocyte Esterase Negative, Urine RBC Trace, Urine WBC 0-5, Ur Epithelial Cells 0-5, Urine Bacteria Trace, Urine Mucus Few - 1+ H, Urine Culture Comments No culture indicated 05/15/20 14:09: Urine Opiates Screen Negative, Barbiturate Screen Negative, Ur Phencyclidine Scrn Negative, Urine Amphetamine Negative, U Benzodiazepines Scrn Negative, Urine Cocaine Screen Negative, Urine Marijuana (THC) Negative 05/15/20 15:00: SARS-CoV-2 (PCR) Not detected 05/15/20 15:27: Ammonia Less than 17.0 05/16/20 06:22: Sodium 129 L, Plasma Sodium 129 L, Potassium 3.9, Chloride 95 L, Carbon Dioxide 27.0, Anion Gap 10.9, BUN 6, Creatinine 0.72, Est GFR (Non-Af Amer) 118 D, BUN/Creatinine Ratio 8.3 L, Random Glucose 103 D, Calcium 8.6, Calcium Adj for Albumin 8.7, Total Bilirubin 0.9, AST 93 H, ALT 128 H, Alkaline Phosphatase 93, Total Protein 7.1, Albumin 3.5 Discharge Location: Home Disposition: Home self-care Condition: Stable Discharge Activity: Activity as tolerated Discharge Diet: General/regular food Referrals: Nayla Trejo MD [Primary Care Provider] - Prescriptions (Any new or edited meds): Ibuprofen 800 mg PO Q4H #120 amLODIPine BESYLATE [Norvasc] 5 mg PO DAILY #30 tab Transmission Status: Pending to [facility], [place], [place] Complete Home Medications List: Complete Home Medication List: Ibuprofen 800 mg PO Q4H #120 05/16/20 amLODIPine BESYLATE [Norvasc] 5 mg PO DAILY #30 tab 05/16/20
[2020-05-16 10:57] VITALS: BP 173/96
== END 2020-05-16 10:05 | disposition home or self-care (01) ==
LOC: MS 13:17 → ER 13:17 → MS 16:20
PROVIDERS: ADMIT Family Medicine; ATTEND Family Medicine
DX: R74.01 Elevation of levels of liver transaminase levels; J44.9 Chronic obstructive pulmonary disease, unspecified; I10 Essential (primary) hypertension; Z72.0 Tobacco use; W01.198A Fall on same level from slipping, tripping and stumbling with subsequent striking against other object, initial encounter; M54.5 Low back pain; S22.42XA Multiple fractures of ribs, left side, initial encounter for closed fracture; F10.10 Alcohol abuse, uncomplicated; E87.1 Hypo-osmolality and hyponatremia